=== PATIENT | female | born 1995 | race Caucasian/White ===

== ENCOUNTER 2019-07-21 16:09 | Emergency (ER) | payer BC ==
--- NOTE | 2019-07-21 16:25 | ED ---
Abdominal Pain/Female - HPI Summary HPI Summary: 23 y/o F with hx right sided kidney infection presenting to [facility] c/o 5/10 RLQ pain starting this morning while she was lying down. Patient was seen at [facility] primary care and was referred here. The pain has improved since she was seen there. She is on day 14 of her menstrual cycle. She denies abnormal vaginal discharge or bleeding. No hx ovarian cysts. Symptoms aggravated by nothing. Symptoms alleviated by nothing. No PMHx, surgical hx, FHx. - History of Current Complaint Chief Complaint: EDAbdPain Stated Complaint: ABD PAIN PER PT Time Seen by Provider: 07/21/19 16:23 Hx Obtained From: Patient Onset/Duration: Lasting Hours, Still Present Timing: Constant Severity Initially: Severe Severity Currently: Moderate Pain Intensity: 5 Pain Scale Used: 0-10 Numeric Location: Discrete At: RLQ Aggravating Factor(s): Nothing Alleviating Factor(s): Nothing Associated Signs and Symptoms: Positive: Negative - abnormal vaginal discharge or bleeding Allergies/Adverse Reactions: Allergies Allergy/AdvReac Type Severity Reaction Status Date / Time No Known Allergies Allergy Verified 07/21/19 16:14 Home Medications: Home Medications NK [No Home Medications Reported] 07/21/19 [History Confirmed 07/21/19] PMH/Surg Hx/FS Hx/Imm Hx Endocrine/Hematology History: Denies: Hx Diabetes, Hx Thyroid Disease Cardiovascular History: Denies: Hx Hypertension Respiratory History: Denies: Hx Asthma - Surgical History Surgical History: None Infectious Disease History: No Infectious Disease History: Denies: Traveled Outside the [place] in Last 30 Days - Family History Known Family History: Negative: Cardiac Disease, Hypertension, Diabetes Review of Systems Positive: Abdominal Pain - RLQ Genitourinary: Negative - abnormal vaginal bleeding or discharge All Other Systems Reviewed And Are Negative: Yes Physical Exam - Summary Physical Exam Summary: Constitutional: Well-developed, Well-nourished, Alert. (-) Distressed Skin: Warm, Dry HENT: Normocephalic; Atraumatic Eyes: Conjunctiva normal Neck: Musculoskeletal ROM normal neck. (-) JVD, (-) Stridor, (-) Nuchal rigidity Cardio: Rhythm regular, rate normal, Heart sounds normal; Intact distal pulses; Radial pulses are 2+ and symmetric. (-) Murmur Pulmonary/Chest wall: Effort normal. (-) Respiratory distress, (-) Wheezes, (-) Rales Abd: Soft, RLQ tenderness, (-) Distension, (-) Guarding, (-) Rebound Musculoskeletal: (-) Edema Lymph: (-) Cervical adenopathy Neuro: Alert, Oriented x3 Psych: Mood and affect Normal Triage Information Reviewed: Yes Vital Signs On Initial Exam: Initial Vitals Temp Pulse Resp BP Pulse Ox 98.8 F 88 19 107/66 100 07/21/19 16:10 07/21/19 16:10 07/21/19 16:10 07/21/19 16:10 07/21/19 16:10 Vital Signs Reviewed: Yes Procedures - Sedation Patient Received Moderate/Deep Sedation with Procedure: No Diagnostics - Vital Signs Vital Signs Temp Pulse Resp BP Pulse Ox 07/21/19 16:10 98.8 F 88 19 107/66 100 - Laboratory Result Diagrams: 07/21/19 16:37 07/21/19 16:37 Lab Statement: Any lab studies that have been ordered have been reviewed, and results considered in the medical decision making process. - Ultrasound Transvaginal Ultrasound Interpretation Completed By: Radiologist - IMPRESSION: No adnexal masses. Free fluid in the cul-de-sac. ED physician has reviewed this imaging report. Abdominal Pain Fem Course/Dx - Course Course Of Treatment: 23 y/o F p/w RLQ pain. DDx includes pancreatitis, GERD, renal stone, Cholecystitis, Less likely SBO, ectopic, PID, ovarian torsion, fibroids. Exam relatively unremarkable today, no rigidity or suggestions of acute surgical abd. Pt with negative Armendariz's on exam. Less likely ovarian torsion given location of pain and no focal TTP on exam.Pt denies pelvic pain and vaginal discharge, also with no fever, so less likely PID. Check TVUS to assess for ovarian cyst which would be c/w patient's presentation Will obtain UA to assess for UTI. US w trace janee fluid, suspect ruptured cyst. Patient declined pelvic. - Diagnoses Provider Diagnoses: RLQ abdominal pain, Ovarian cyst Discharge ED - Sign-Out/Discharge Documenting (check all that apply): Patient Departure - Discharge Plan Condition: Stable Disposition: HOME Patient Education Materials: Ruptured Ovarian Cyst (ED) Referrals: [facility] [Outside] Additional Instructions: You were seen in the emergency department for right-sided abdominal pain. This is likely secondary to an ovarian cyst which is very common. Please follow up with your primary care doctor in next 2-3 days and return to emergency department for worsening pain, fevers, or concerning symptoms. It was a pleasure taking care of you today. - Billing Disposition and Condition Condition: STABLE Disposition: Home - Attestation Statements Document Initiated by Keren: Yes Documenting Scribe: Oliva Woo Provider For Whom Keren is Documenting (Include Credential): Oly Price MD Scribe Attestation: IOliva, scribed for Oly Price MD on 07/21/19 at 1820. Scribe Documentation Reviewed: Yes Provider Attestation: The documentation as recorded by the Oliva guerrero accurately reflects the service I personally performed and the decisions made by me, Oly Price MD Status of Scribe Document: Viewed
[2019-07-21 16:47] LABS: ABS Eosinophils 0.1 10^3/ul (0-0.6); ABS Lymphocytes 1.8 10^3/ul (1.0-4.8); ABS Monocytes 0.6 10^3/ul (0-0.8); Eosinophil % 1.6 %; Hematocrit 39 % (35-47); Hemoglobin 13.5 g/dL (12.0-16.0); Mean Corpuscular HGB Conc 34 g/dL (31-36); Mean Corpuscular Hemoglobin 30 pg (27-31); Mean Corpuscular Volume 87 fL (80-97); Mean Platelet Volume 8.4 fL (7.4-10.4); Platelet Count 204 10^3/uL (150-450); Red Blood Count 4.51 10^6 /uL (3.70-4.87); Red Cell Distribution Width 13 % (10-15); White Blood Count 7.6 10^3/uL (3.5-10.8)
[2019-07-21 17:03] LABS: ALT 14 U/L (7-52); AST 18 U/L (13-39); Albumin 4.4 g/dL (3.2-5.2); Albumin/Globulin Ratio 1.4 (1-3); Alkaline Phosphatase 45 U/L (34-104); Anion Gap 6 mmol/L (2-11); BUN/Creatinine Ratio 11.8 (8-20); Blood Urea Nitrogen 9 mg/dL (6-24); C Reactive Protein < 1.00 mg/L (<8.01); CO2 Carbon Dioxide 26 mmol/L (22-32); Calcium 9.4 mg/dL (8.6-10.3); Chloride 104 mmol/L (101-111); EGFR African American 115.1 (>60); EGFR Non-African American 95.2 (>60); Globulin 3.1 g/dL (2-4); Glucose 84 mg/dL (70-100); Potassium 3.4 mmol/L (3.5-5.0); Sodium 136 mmol/L (135-145); Total Protein 7.5 g/dL (6.4-8.9)
[2019-07-21 17:10] LABS: HCG Pregnancy < 0.60 mIU/mL
[2019-07-21 17:46] LABS: Urine Appearance Cloudy; Urine Bilirubin Negative (Negative); Urine Blood Negative (Negative); Urine Color Straw; Urine Glucose Negative (Negative); Urine Ketones Negative (Negative); Urine Nitrite Negative (Negative); Urine Protein Negative (Negative); Urine Specific Gravity 1.005 (1.010-1.030); Urine Urobilinogen Negative (Negative)
[2019-07-21 18:22] VITALS: BP 000/00
== END 2019-07-21 18:20 | disposition home or self-care (01) ==
LOC: ED 16:09
DX: R10.31 Right lower quadrant pain (principal); N83.202 Unspecified ovarian cyst, left side; K21.9 Gastro-esophageal reflux disease without esophagitis
CPT/HCPCS: 36415; 76830; 80053; 81003; 84702; 85025; 86140; 99282

== ENCOUNTER 2021-07-08 02:59 | Inpatient (IN) ==
[2021-07-08] MEDS ORDERED: Lactated Ringers 1000 ml BAG 1,000 ML IV ONE ×2 (03:53→05:30)
[2021-07-08 04:11] LABS: ABS Lymphocytes 1.1 10^3/ul (1.0-4.8); ABS Monocytes 0.7 10^3/ul (0-0.8); ABS Neutrophils 7.9 10^3/ul (1.5-7.7); Eosinophil % 0.3 %; Hematocrit 29 % (35-47); Hemoglobin 9.5 g/dL (12.0-16.0); Lymphocyte % 10.9 %; Mean Corpuscular HGB Conc 32 g/dL (31-36); Mean Corpuscular Hemoglobin 25 pg (27-31); Mean Corpuscular Volume 76 fL (80-97); Mean Platelet Volume 10.2 fL (7.4-10.4); Nucleated Red Blood Cells % 0.2; Platelet Count 164 10^3/uL (150-450); Red Blood Count 3.87 10^6 /uL (3.70-4.87); Red Cell Distribution Width 16 % (10-15); White Blood Count 9.8 10^3/uL (3.5-10.8)
[2021-07-08 04:29] LABS: Urine Benzodiazepine Screen None Detected (None Detect); Urine Opiates Screen None Detected (None Detect)
[2021-07-08] MEDS ORDERED: OBEPIDURAL (200 ML) 200 ML EPIDURAL ONE ×2 (04:40→14:41)
[2021-07-08] MEDS ORDERED: Phenylephrine 40 mcg/mL 10mL (400mcg) SYRINGE IV PUSH PRN ×2 (05:30)
[2021-07-08] MEDS ORDERED: Lactated Ringers 1000 ml BAG 500 ML IV PRN ×2 (05:30)
[2021-07-08] MEDS ORDERED: Sodium Citrate/Citric Acid LIQ 15 ML UDC PO PRN (05:30)
[2021-07-08] MEDS ORDERED: OBEPIDURAL (200 ML) 200 ML EPIDURAL SCH (06:00)
[2021-07-08] MEDS ORDERED: Lactated Ringers 1000 ml BAG 1,000 ML IV SCH ×2 (06:00→23:45)
[2021-07-08 06:44] LABS: Urine Appearance Cloudy; Urine Bilirubin Negative (Negative); Urine Blood 1+ (Negative); Urine Color Yellow; Urine Glucose Negative (Negative); Urine Ketones Negative (Negative); Urine Nitrite Negative (Negative); Urine Protein Negative (Negative); Urine Specific Gravity 1.015 (1.002-1.030); Urine Urobilinogen Negative (Negative)
[2021-07-08 06:48] LABS: Urine Bacteria 1+ (Absent); Urine Red Blood Cell Trace(0-2/hpf) (Absent); Urine Squamous Epithelial Cell Present (Absent); Urine White Blood Cell Trace(0-5/hpf) (Absent)
[2021-07-08] MEDS ORDERED: Oxytocin in LR 20 UNITS/1,000 ML BAG IVPB ONE (18:56)
[2021-07-08] MEDS ORDERED: Gentamicin ADULT 320 MG in NS 0.9% 100 ml BAG 100 ML IVPB ONE (19:40)
[2021-07-08] MEDS: Ampicillin ADVAN 2 GM in NS 0.9% 100 ml BAG 100 ML IVPB SCH (20:08)
[2021-07-08] MEDS ORDERED: Dibucaine 1% OINT 28.35 GM TUBE PR PRN (23:14)
[2021-07-08] MEDS ORDERED: Glycerin ADULT 2.4 gm SUPP PR PRN (23:14)
[2021-07-08] MEDS ORDERED: Witch Hazel PAD JAR ONE (23:54)
[2021-07-08] MEDS ORDERED: Dibucaine 1% OINT 28.35 GM TUBE ONE (23:54)
[2021-07-09] MEDS: Witch Hazel PAD JAR TOPICAL PRN ×2 (00:12→21:33)
[2021-07-09] MEDS: Ampicillin ADVAN 2 GM in NS 0.9% 100 ml BAG 100 ML IVPB SCH ×2 (02:11→09:21)
[2021-07-09 06:23] LABS: ABS Lymphocytes 0.9 10^3/ul (1.0-4.8); ABS Monocytes 1.2 10^3/ul (0-0.8); ABS Neutrophils 18.4 10^3/ul (1.5-7.7); Hematocrit 24 % (35-47); Hemoglobin 7.7 g/dL (12.0-16.0); Lymphocyte % 4.6 %; Mean Corpuscular HGB Conc 33 g/dL (31-36); Mean Corpuscular Hemoglobin 24 pg (27-31); Mean Corpuscular Volume 75 fL (80-97); Mean Platelet Volume 8.9 fL (7.4-10.4); Platelet Count 134 10^3/uL (150-450); Red Blood Count 3.16 10^6 /uL (3.70-4.87); Red Cell Distribution Width 16 % (10-15); White Blood Count 20.5 10^3/uL (3.5-10.8)
[2021-07-09] MEDS ORDERED: diPHENhydraMINE IV 50 MG/ML 1 ml VIAL (BENADRYL) SLOW PUSH PRN (15:40)
[2021-07-09] MEDS ORDERED: NS 0.9% IVPB ONE (17:00)
[2021-07-09] MEDS ORDERED: FERRIC GLUCONATE IVPB ONE (17:00)
[2021-07-10 08:05] VITALS: BP 127/80
== END 2021-07-10 12:45 | disposition home or self-care (01) | DRG 560 ==
LOC: MCHOBOUT 02:59 → MCHOB 03:26
PROVIDERS: ADMIT Midwife; ATTEND Midwife

== ENCOUNTER 2024-03-08 10:05 | Inpatient (IN) ==
[2024-03-08] MEDS ORDERED: Lidocaine 1% VIAL 10 MG/ML 30 ML VIAL INJ PRN (10:48)
[2024-03-08 12:30] LABS: Hematocrit 34.2 % (35-45); Hemoglobin 11.3 g/dL (11.5-14.3); Mean Corpuscular Hgb Conc 33.1 g/dL (31-36); Mean Corpuscular Volume 81.5 fL (80-97); Mean Platelet Volume 9.5 fL (7.5-11.2); Platelet Count 164 10^3/uL (150-450); Red Blood Count 4.19 10^6/uL (3.63-4.92); Red Cell Distribution Width 28.6 % (12-17); White Blood Count 9.6 10^3/uL (3.8-11.8)
[2024-03-08] MEDS: Lactated Ringers 1000 ml BAG 1,000 ML IV ONE (12:30)
[2024-03-08 12:49] LABS: Urine Benzodiazepine Screen None Detected (None Detect); Urine Cannabinoids Screen None Detected (None Detect); Urine Opiates Screen None Detected (None Detect)
[2024-03-08] MEDS: Oxytocin in LR 20,000 MILLI.UNIT/1,000 ML BAG IV SCH (13:00)
[2024-03-08] MEDS: Buffered Lidocaine 1% SYRIN 1 ml INTRADERM ONE (13:05)
[2024-03-08 13:23] LABS: ABS Lymphocytes 1.4 10^3/uL (1.0-4.8); ABS Monocytes 0.7 10^3/uL (0.0-0.9); ABS Neutrophils 7.5 10^3/uL (1.5-7.6); Eosinophil % 0.4 %; Lymphocyte % 14.2 %
[2024-03-08] MEDS: Lactated Ringers 1000 ml BAG 1,000 ML IV SCH (17:30)
[2024-03-08] MEDS: Phenylephrine 40 mcg/mL 10mL (400mcg) SYRINGE ONE (17:40)
[2024-03-08] MEDS: Lidocaine 1.5% EPI 1:200,000 30 ML SDV ONE (17:55)
[2024-03-08] MEDS: OBEPIDURAL (200 ML) 200 ML EPIDURAL ONE (18:00)
[2024-03-08 18:47] LABS: Urine Appearance Clear; Urine Bilirubin Negative (Negative); Urine Blood Negative (Negative); Urine Color Colorless; Urine Glucose Negative (Negative); Urine Ketones Negative (Negative); Urine Nitrite Negative (Negative); Urine Protein Negative (Negative); Urine Specific Gravity 1.012 (1.002-1.030); Urine Urobilinogen Negative (Negative)
[2024-03-08] MEDS ORDERED: Glycerin ADULT 2.4 gm SUPP PR PRN (19:29)
[2024-03-08] MEDS ORDERED: Witch Hazel PAD JAR TOPICAL PRN (19:29)
[2024-03-08] MEDS ORDERED: Dibucaine 1% OINT 28.35 GM TUBE PR PRN (19:29)
[2024-03-09 09:02] LABS: Hematocrit 31.9 % (35-45); Hemoglobin 10.6 g/dL (11.5-14.3); Mean Corpuscular Hemoglobin 27.1 pg (27-33); Mean Corpuscular Hgb Conc 33.3 g/dL (31-36); Mean Corpuscular Volume 81.4 fL (80-97); Mean Platelet Volume 8.8 fL (7.5-11.2); Platelet Count 152 10^3/uL (150-450); Red Blood Count 3.91 10^6/uL (3.63-4.92); Red Cell Distribution Width 28.6 % (12-17); White Blood Count 10.4 10^3/uL (3.8-11.8)
[2024-03-09 09:25] LABS: ABS Lymphocytes 1.5 10^3/uL (1.0-4.8); ABS Monocytes 0.7 10^3/uL (0.0-0.9); ABS Neutrophils 8.1 10^3/uL (1.5-7.6); Eosinophil % 0.3 %; Lymphocyte % 14.7 %
[2024-03-09 20:28] VITALS: BP 114/71
== END 2024-03-09 20:28 | disposition home or self-care (01) | DRG 560 ==
LOC: MCHOBOUT 10:05 → MCHOB 10:46
PROVIDERS: ADMIT Midwife; ATTEND Midwife